=== PATIENT | female | born 1975 | race Caucasian/White ===

== ENCOUNTER 2020-05-30 08:24 | Day surgery (SDC) | payer MEDICARE ==
[~2020-05-30 08:24] MED LIST: CEFAZOLIN 2 GM-D5W BAG** 2 GM/50 ML ML IV ONE; Lactated Ringers 0 ML IV ONE; Lactated Ringers 1,000 ML IV ONE; Lactated Ringers 1,000 ML IV SCH; Sensorcaine 0.25% 10 ML ONE
== END 2020-05-30 09:12 | disposition home or self-care (01) ==
LOC: SDC 08:24 → MED SURG 08:24 → UNDOADMOB 08:24 → INTOOBSV 08:24 → EDSTATUS 09:03 → SDC 09:12 → UNDODISOB 09:12 → EDSTATUS 10:21
PROVIDERS: ATTEND Obstetrics & Gynecology
DX: Z53.09 Procedure and treatment not carried out because of other contraindication (principal)
CPT/HCPCS: J0690

== ENCOUNTER 2020-12-11 15:56 | Inpatient (IN) | payer MEDICARE ==
[2020-12-12] MEDS ORDERED: CEFAZOLIN 2 GM-D5W BAG** 2 GM/50 ML ML IV SCH (06:30)
[2020-12-12] MEDS: Lactated Ringers 1,000 ML IV SCH ×2 (06:48→16:00)
[2020-12-12] MEDS ORDERED: Sensorcaine 0.25% 10 ML ONE (07:58)
[2020-12-12] MEDS ORDERED: Lactated Ringers 1,000 ML IV ONE (07:59)
[2020-12-12] MEDS ORDERED: TORAdol 30 mg Injection ONE (08:01)
[2020-12-12] MEDS ORDERED: SUBLIMAZE 100 MCG/2 ML ONE ×2 (08:01→09:38)
[2020-12-12] MEDS ORDERED: Zofran 4 MG/2 ML VIAL ONE (08:01)
[2020-12-12] MEDS ORDERED: Xylocaine-Mpf 2% 5 Ml Vial ONE (08:01)
[2020-12-12] MEDS ORDERED: Versed 2 MG/2 ML Injection ONE (08:01)
[2020-12-12] MEDS ORDERED: BRIDION 200MG/2ML IV ONE (08:01)
[2020-12-12] MEDS ORDERED: DIPRIVAN 200 MG/20 ML IV ONE (08:01)
[2020-12-12] MEDS ORDERED: Zemuron 100 MG/10 ML ONE ×2 (08:01→09:52)
[2020-12-12] MEDS ORDERED: Decadron 4 MG INJ ONE (08:01)
[2020-12-12] MEDS ORDERED: Astramorph-Pf 5 MG/10 ML ONE (08:08)
[2020-12-12] MEDS ORDERED: TRANDATE 20 MG/4 ML SYRINGE IV ONE (10:05)
[2020-12-12] MEDS ORDERED: Morphine PCA 1 MG/ML 30 ML IV PRN (11:33)
[2020-12-12] MEDS ORDERED: Zofran 4 MG/2 ML VIAL IV PRN (11:42)
[2020-12-12] MEDS ORDERED: TORAdol 30 mg Injection IV PRN (11:44)
[2020-12-12] MEDS: Reglan 10 MG/2 ML IV SCH ×2 (16:00→21:07)
[2020-12-12] MEDS: Mylicon 80MG PO SCH ×2 (18:05→21:07)
[2020-12-12 18:14] LABS: Absolute Neutrophil Ct (ANC) 7.77 (1.4-6.9); BASOPHIL % 0.2 % (0.0-0.4); Basophil (Absolute #) 0.02 (0-0.4); Eosinophil (Absolute #) 0 (0-0.5); Hematocrit 32.7 % (35-47); Hemoglobin 9.6 gm/dl (12.0-16.0); Lymphocyte (Absolute #) 0.85 (1.0-4.6); Lymphocytes % 9.6 % (24.0-44.0); Mean Cell Volume 75.9 fl (78-100); Mean Corpuscular Hemoglobin 22.3 pg (26-32); Mean Corpuscular Hgb Concent. 29.4 g/dl (32-36); Mean Platelet Volume 10.3 fl (7.5-11.0); Monocyte (Absolute #) 0.24 (0.0-1.3); Monocytes % 2.7 % (0.0-12.0); Neutrophil % 87.5 % (36.0-66.0); Platelet Count 224 K/mm3 (150-450); Red Blood Count 4.31 M/mm3 (4.1-5.4); Red Cell Distribution Width 16.4 % (11.5-14.0); White Blood Count 8.9 K/mm3 (4.0-10.5)
[2020-12-12 19:30] LABS: Appearance CLEAR (CLEAR); Bilirubin NEGATIVE (NEGATIVE); Blood NEGATIVE Ery/ul (0-5); Glucose NEGATIVE (NEGATIVE); Ketones NEGATIVE (NEGATIVE); Leukocyte Esterase NEGATIVE (NEGATIVE); Nitrite NEGATIVE (NEGATIVE); Protein,Urine Dip NEGATIVE (Negative); Specific Gravity 1.011 (1.005-1.025); Urobilinogen NEGATIVE mg/dL (0-1)
[2020-12-12] MEDS: CEFAZOLIN 2 GM-D5W BAG** 2 GM/50 ML ML IV SCH (19:37)
[2020-12-12 20:19] LABS: Bacteria NONE SEEN /HPF (NEGATIVE)
[2020-12-12] MEDS: Colace 100 MG PO SCH (21:07)
[2020-12-13] MEDS: Lactated Ringers 1,000 ML IV SCH (00:34)
[2020-12-13] MEDS: CEFAZOLIN 2 GM-D5W BAG** 2 GM/50 ML ML IV SCH (02:13)
[2020-12-13 05:26] LABS: Absolute Neutrophil Ct (ANC) 5.57 (1.4-6.9); BASOPHIL % 0.1 % (0.0-0.4); Basophil (Absolute #) 0.01 (0-0.4); Eosinophil % 0.1 % (0.00-5.0); Eosinophil (Absolute #) 0.01 (0-0.5); Hematocrit 30.3 % (35-47); Hemoglobin 8.8 gm/dl (12.0-16.0); Lymphocyte (Absolute #) 2.21 (1.0-4.6); Lymphocytes % 25.6 % (24.0-44.0); Mean Cell Volume 75.8 fl (78-100); Mean Platelet Volume 10.6 fl (7.5-11.0); Monocyte (Absolute #) 0.82 (0.0-1.3); Monocytes % 9.5 % (0.0-12.0); Neutrophil % 64.7 % (36.0-66.0); Platelet Count 214 K/mm3 (150-450); Red Cell Distribution Width 16.3 % (11.5-14.0); White Blood Count 8.6 K/mm3 (4.0-10.5)
[2020-12-13 06:01] LABS: ALBUMIN 3.2 g/dL (3.5-5.0); ALKALINE PHOSPHATASE 48 U/L (38-126); ANION GAP 11.5 MEQ/L (5-15); BLOOD UREA NITROGEN 12 mg/dL (7-17); CHLORIDE 106 mmol/L (98-107); Calcium 8.4 mg/dL (8.4-10.2); Carbon Dioxide 24 mmol/L (22-30); Creatinine 1 0.68 mg/dL (0.52-1.04); EST GLOMERULAR FILTRATION RATE > 60.0 ML/MIN; Glucose 98 mg/dL (74-106); Potassium 3.8 mmol/L (3.5-5.1); SGOT/AST 25 U/L (14-36); SGPT/ALT 13 U/L (0-35); SODIUM 138 mmol/L (137-145); Total Protein 6.1 g/dL (6.3-8.2)
[2020-12-13] MEDS: Reglan 10 MG/2 ML IV SCH (06:39)
[2020-12-13] MEDS: Mylicon 80MG PO SCH (06:39)
[2020-12-13] MEDS ORDERED: ENOXAPARIN SODIUM SQ SCH (08:00)
--- NOTE | 2020-12-13 08:00 | PCM.NOTE ---
Date and Time: 12/13/20 0758 Subjective Assessment: pod 1 pt resting in bed and doing well. vss afebrile abd; soft incision c/d/intact ext; no clubbing cyanosis or edema cr; .68 hgb; 8.8 a/p sp laparoscopic supracervical hysterectomy left ophorectomy, b/l salpingectomy dc home today fu office 1 wk Objective Exam Wound Assessment: Skin/Wound Assessment Wound/Incision Assessment Start: 12/12/20 09:39 Text: Status: Active Freq: Q4H Protocol: Document 12/13/20 04:00 MG (Rec: 12/13/20 05:31 MG [id number]) Wound/Incision Assessment Lower Anterior Abdomen Wound Assessment Shift Assessment Wound Type Incision Wound Stage Non Pressure Wound Dressing Status Dry & Intact Drainage Amount Minimal Drainage Description Sanguineous Comment No change noted. OBJECTIVE DATA Vital Signs: Vital Signs - 24 hr Temp Pulse Resp BP Pulse Ox 12/13/20 07:35 97.8 F 81 16 98/55 97 12/13/20 04:37 96 12/13/20 04:00 98.4 F 77 18 123/60 96 12/13/20 00:41 97.8 F 66 16 102/58 96 12/13/20 00:37 96 12/12/20 20:37 97 12/12/20 19:30 99.6 F 77 16 106/54 97 12/12/20 16:01 97.8 F 62 16 113/58 97 12/12/20 16:00 16 12/12/20 13:39 97.8 F 70 16 125/60 97 12/12/20 13:25 97.8 F 70 16 125/60 97 12/12/20 13:00 97.6 F 71 18 125/67 100 12/12/20 12:37 100 12/12/20 12:15 97.5 F 74 18 123/74 99 12/12/20 12:00 97.7 F 70 14 110/62 99 Pain Assessment - Last Documented Pain Intensity 7 Intake and Output: Intake & Output 12/10/20 12/11/20 12/12/20 12/13/20 11:59 11:59 11:59 11:59 Intake Total 2679 Output Total 1450 Balance 1229 Weight 88 kg 88 kg Lab Results: Lab Results-Last 24 Hours 12/12/20 12/12/20 12/13/20 Range/Units 08:32 18:04 04:55 WBC 8.9 8.6 (4.0-10.5) K/mm3 RBC 4.31 4.00 L (4.1-5.4) M/mm3 Hgb 9.6 L 8.8 L (12.0-16.0) gm/dl Hct 32.7 L 30.3 L (35-47) % MCV 75.9 L 75.8 L (78-100) fl MCH 22.3 L 22.0 L (26-32) pg MCHC 29.4 L 29.0 L (32-36) g/dl RDW 16.4 H 16.3 H (11.5-14.0) % Plt Count 224 214 (150-450) K/mm3 MPV 10.3 10.6 (7.5-11.0) fl Gran % 87.5 H 64.7 (36.0-66.0) % Eos # (Auto) 0 0.01 (0-0.5) Absolute Lymphs (auto) 0.85 L 2.21 (1.0-4.6) Absolute Monos (auto) 0.24 0.82 (0.0-1.3) Lymphocytes % 9.6 L 25.6 (24.0-44.0) % Monocytes % 2.7 9.5 (0.0-12.0) % Eosinophils % 0.0 0.1 (0.00-5.0) % Basophils % 0.2 0.1 (0.0-0.4) % Absolute Granulocytes 7.77 H 5.57 (1.4-6.9) Basophils # 0.02 0.01 (0-0.4) Sodium (137-145) mmol/L Potassium (3.5-5.1) mmol/L Chloride (98-107) mmol/L Carbon Dioxide (22-30) mmol/L Anion Gap (5-15) MEQ/L BUN (7-17) mg/dL Creatinine (0.52-1.04) mg/dL Estimated GFR ML/MIN Glucose (74-106) mg/dL Calcium (8.4-10.2) mg/dL Total Bilirubin (0.2-1.3) mg/dL AST (14-36) U/L ALT (0-35) U/L Alkaline Phosphatase (38-126) U/L Serum Total Protein (6.3-8.2) g/dL Albumin (3.5-5.0) g/dL Urine Color YELLOW (YELLOW) Urine Appearance CLEAR (CLEAR) Urine pH 6.0 (5-6) Ur Specific Lena 1.011 (1.005-1.025) Urine Protein NEGATIVE (Negative) Urine Ketones NEGATIVE (NEGATIVE) Urine Blood NEGATIVE (0-5) Anjum/ul Urine Nitrite NEGATIVE (NEGATIVE) Urine Bilirubin NEGATIVE (NEGATIVE) Urine Urobilinogen NEGATIVE (0-1) mg/dL Ur Leukocyte Esterase NEGATIVE (NEGATIVE) Urine WBC (Auto) NONE (0-5) /HPF Urine RBC (Auto) NONE (0-2) /HPF U Epithel Cells (Auto) NONE (FEW) /HPF Urine Bacteria (Auto) NONE SEEN (NEGATIVE) /HPF Urine Glucose NEGATIVE (NEGATIVE) mg/dL 12/13/20 Range/Units 04:55 WBC (4.0-10.5) K/mm3 RBC (4.1-5.4) M/mm3 Hgb (12.0-16.0) gm/dl Hct (35-47) % MCV (78-100) fl MCH (26-32) pg MCHC (32-36) g/dl RDW (11.5-14.0) % Plt Count (150-450) K/mm3 MPV (7.5-11.0) fl Gran % (36.0-66.0) % Eos # (Auto) (0-0.5) Absolute Lymphs (auto) (1.0-4.6) Absolute Monos (auto) (0.0-1.3) Lymphocytes % (24.0-44.0) % Monocytes % (0.0-12.0) % Eosinophils % (0.00-5.0) % Basophils % (0.0-0.4) % Absolute Granulocytes (1.4-6.9) Basophils # (0-0.4) Sodium 138 (137-145) mmol/L Potassium 3.8 (3.5-5.1) mmol/L Chloride 106 (98-107) mmol/L Carbon Dioxide 24 (22-30) mmol/L Anion Gap 11.5 (5-15) MEQ/L BUN 12 (7-17) mg/dL Creatinine 0.68 (0.52-1.04) mg/dL Estimated GFR > 60.0 ML/MIN Glucose 98 (74-106) mg/dL Calcium 8.4 (8.4-10.2) mg/dL Total Bilirubin 0.20 (0.2-1.3) mg/dL AST 25 (14-36) U/L ALT 13 (0-35) U/L Alkaline Phosphatase 48 (38-126) U/L Serum Total Protein 6.1 L (6.3-8.2) g/dL Albumin 3.2 L (3.5-5.0) g/dL Urine Color (YELLOW) Urine Appearance (CLEAR) Urine pH (5-6) Ur Specific Lena (1.005-1.025) Urine Protein (Negative) Urine Ketones (NEGATIVE) Urine Blood (0-5) Anjum/ul Urine Nitrite (NEGATIVE) Urine Bilirubin (NEGATIVE) Urine Urobilinogen (0-1) mg/dL Ur Leukocyte Esterase (NEGATIVE) Urine WBC (Auto) (0-5) /HPF Urine RBC (Auto) (0-2) /HPF U Epithel Cells (Auto) (FEW) /HPF Urine Bacteria (Auto) (NEGATIVE) /HPF Urine Glucose (NEGATIVE) mg/dL Assessment/Plan (1) S/P laparoscopic supracervical hysterectomy Current Visit: Yes Status: Acute Code(s): Z90.711 - ACQUIRED ABSENCE OF UTERUS WITH REMAINING CERVICAL STUMP (2) H/O bilateral salpingectomy Current Visit: Yes Status: Acute Code(s): Z90.79 - ACQUIRED ABSENCE OF OTHER GENITAL ORGAN(S) (3) S/P left oophorectomy Current Visit: Yes Status: Acute Code(s): Z90.721 - ACQUIRED ABSENCE OF OVARIES, UNILATERAL
--- NOTE | 2020-12-13 08:07 | PCM.DS ---
Discharge Summary Date of Admission: 12/12/20 06:31 Admitting Physician: ZARINA ZIMMERMAN DO Primary Care Provider: INES,LOLIS Allergies Allergies latex Allergy (Intermediate, Verified 12/12/20 06:56) Swelling pine oil *RETIRED-06/24/12 [pine oil] Allergy (Verified 12/12/20 06:56) pineapple [Pineapple] Allergy (Verified 12/12/20 06:56) sulfamethoxazole [From Bactrim] Allergy (Verified 12/12/20 06:56) trimethoprim [From Bactrim] Allergy (Verified 12/12/20 06:56) Hospital Summary - Hospital Course Hospital Course: pt admitted on december 12 for undergoing laparoscopic supracervical hysterectomy bilteral salpingectomy, left ophorectomy secondary to abnormal uterine bleeding, anemia, and left ovarian cyst. pt underwent procedure without complication. during postop period did well and now stable for discharge. stable hgb; at 8.8 with normal creatinine level. pt discharged on norco for pain management and was advised to fu in office in 1 wk. all questions answered to her satisfaction. - Vitals & Intake/Output Vital Signs: Vital Signs Temperature 97.8 F 12/13/20 07:35 Pulse Rate 81 12/13/20 07:35 Respiratory Rate 16 12/13/20 07:35 Blood Pressure 98/55 12/13/20 07:35 O2 Sat by Pulse Oximetry 97 12/13/20 07:35 Intake & Output: Intake & Output 12/10/20 12/11/20 12/12/20 12/13/20 11:59 11:59 11:59 11:59 Intake Total 2679 Output Total 1450 Balance 1229 Weight 88 kg 88 kg - Lab Result Diagrams: 12/13/20 04:55 12/13/20 04:55 Lab Results-Last 24 Hrs: Lab Results-Last 24 Hours 12/12/20 12/12/20 12/13/20 Range/Units 08:32 18:04 04:55 WBC 8.9 8.6 (4.0-10.5) K/mm3 RBC 4.31 4.00 L (4.1-5.4) M/mm3 Hgb 9.6 L 8.8 L (12.0-16.0) gm/dl Hct 32.7 L 30.3 L (35-47) % MCV 75.9 L 75.8 L (78-100) fl MCH 22.3 L 22.0 L (26-32) pg MCHC 29.4 L 29.0 L (32-36) g/dl RDW 16.4 H 16.3 H (11.5-14.0) % Plt Count 224 214 (150-450) K/mm3 MPV 10.3 10.6 (7.5-11.0) fl Gran % 87.5 H 64.7 (36.0-66.0) % Eos # (Auto) 0 0.01 (0-0.5) Absolute Lymphs (auto) 0.85 L 2.21 (1.0-4.6) Absolute Monos (auto) 0.24 0.82 (0.0-1.3) Lymphocytes % 9.6 L 25.6 (24.0-44.0) % Monocytes % 2.7 9.5 (0.0-12.0) % Eosinophils % 0.0 0.1 (0.00-5.0) % Basophils % 0.2 0.1 (0.0-0.4) % Absolute Granulocytes 7.77 H 5.57 (1.4-6.9) Basophils # 0.02 0.01 (0-0.4) Sodium (137-145) mmol/L Potassium (3.5-5.1) mmol/L Chloride (98-107) mmol/L Carbon Dioxide (22-30) mmol/L Anion Gap (5-15) MEQ/L BUN (7-17) mg/dL Creatinine (0.52-1.04) mg/dL Estimated GFR ML/MIN Glucose (74-106) mg/dL Calcium (8.4-10.2) mg/dL Total Bilirubin (0.2-1.3) mg/dL AST (14-36) U/L ALT (0-35) U/L Alkaline Phosphatase (38-126) U/L Serum Total Protein (6.3-8.2) g/dL Albumin (3.5-5.0) g/dL Urine Color YELLOW (YELLOW) Urine Appearance CLEAR (CLEAR) Urine pH 6.0 (5-6) Ur Specific Counselor 1.011 (1.005-1.025) Urine Protein NEGATIVE (Negative) Urine Ketones NEGATIVE (NEGATIVE) Urine Blood NEGATIVE (0-5) Anjum/ul Urine Nitrite NEGATIVE (NEGATIVE) Urine Bilirubin NEGATIVE (NEGATIVE) Urine Urobilinogen NEGATIVE (0-1) mg/dL Ur Leukocyte Esterase NEGATIVE (NEGATIVE) Urine WBC (Auto) NONE (0-5) /HPF Urine RBC (Auto) NONE (0-2) /HPF U Epithel Cells (Auto) NONE (FEW) /HPF Urine Bacteria (Auto) NONE SEEN (NEGATIVE) /HPF Urine Glucose NEGATIVE (NEGATIVE) mg/dL 12/13/20 Range/Units 04:55 WBC (4.0-10.5) K/mm3 RBC (4.1-5.4) M/mm3 Hgb (12.0-16.0) gm/dl Hct (35-47) % MCV (78-100) fl MCH (26-32) pg MCHC (32-36) g/dl RDW (11.5-14.0) % Plt Count (150-450) K/mm3 MPV (7.5-11.0) fl Gran % (36.0-66.0) % Eos # (Auto) (0-0.5) Absolute Lymphs (auto) (1.0-4.6) Absolute Monos (auto) (0.0-1.3) Lymphocytes % (24.0-44.0) % Monocytes % (0.0-12.0) % Eosinophils % (0.00-5.0) % Basophils % (0.0-0.4) % Absolute Granulocytes (1.4-6.9) Basophils # (0-0.4) Sodium 138 (137-145) mmol/L Potassium 3.8 (3.5-5.1) mmol/L Chloride 106 (98-107) mmol/L Carbon Dioxide 24 (22-30) mmol/L Anion Gap 11.5 (5-15) MEQ/L BUN 12 (7-17) mg/dL Creatinine 0.68 (0.52-1.04) mg/dL Estimated GFR > 60.0 ML/MIN Glucose 98 (74-106) mg/dL Calcium 8.4 (8.4-10.2) mg/dL Total Bilirubin 0.20 (0.2-1.3) mg/dL AST 25 (14-36) U/L ALT 13 (0-35) U/L Alkaline Phosphatase 48 (38-126) U/L Serum Total Protein 6.1 L (6.3-8.2) g/dL Albumin 3.2 L (3.5-5.0) g/dL Urine Color (YELLOW) Urine Appearance (CLEAR) Urine pH (5-6) Ur Specific Counselor (1.005-1.025) Urine Protein (Negative) Urine Ketones (NEGATIVE) Urine Blood (0-5) Anjum/ul Urine Nitrite (NEGATIVE) Urine Bilirubin (NEGATIVE) Urine Urobilinogen (0-1) mg/dL Ur Leukocyte Esterase (NEGATIVE) Urine WBC (Auto) (0-5) /HPF Urine RBC (Auto) (0-2) /HPF U Epithel Cells (Auto) (FEW) /HPF Urine Bacteria (Auto) (NEGATIVE) /HPF Urine Glucose (NEGATIVE) mg/dL - Procedures and Test Procedures and Tests throughout Hospitalization: Therapy Orders & Screens 12/12/20 12:04 Incentive Spirometry UD Comment: Diagnosis: abnormal uterine bleeding 12/12/20 14:07 Smoking Cessation Education ONCE Comment: Diagnosis: S/P HYSTERECTOMY Smoking Status: Current every day smoker How long have you smoked: YRS Have you smoked in the past 12 months: No Approximately how many cigarettes per day: 10-15 Do you dip or chew tobacco: No Discharge Exam Wound Assessment: Skin/Wound Assessment Wound/Incision Assessment Start: 12/12/20 09:39 Text: Status: Active Freq: Q4H Protocol: Document 12/13/20 04:00 MG (Rec: 12/13/20 05:31 MG [id number]) Wound/Incision Assessment Lower Anterior Abdomen Wound Assessment Shift Assessment Wound Type Incision Wound Stage Non Pressure Wound Dressing Status Dry & Intact Drainage Amount Minimal Drainage Description Sanguineous Comment No change noted. Final Diagnosis/Problem List - Final Discharge Diagnosis/Problem (1) S/P laparoscopic supracervical hysterectomy Current Visit: Yes Status: Acute Code(s): Z90.711 - ACQUIRED ABSENCE OF UTERUS WITH REMAINING CERVICAL STUMP (2) H/O bilateral salpingectomy Current Visit: Yes Status: Acute Code(s): Z90.79 - ACQUIRED ABSENCE OF OTHER GENITAL ORGAN(S) (3) S/P left oophorectomy Current Visit: Yes Status: Acute Code(s): Z90.721 - ACQUIRED ABSENCE OF OVARIES, UNILATERAL - Discharge Disposition: Home, Self-Care Condition: Stable Prescriptions: New Hydrocodone/Acetaminophen [Hydrocodone-Acetamin 5-325 mg] 1 tab PO Q6HPRN PRN #30 tablet MDD 4 PRN Reason: Pain Follow up with: LOLIS CHACON MD [Primary Care Provider] - ZARINA ZIMMERMAN DO [ACTIVE STAFF] - 1 Week (no heavy lifting nothing per vagina )
[2020-12-13] MEDS ORDERED: NORCO 5/325 MG PO PRN (08:57)
[2020-12-13] MEDS: Colace 100 MG PO SCH (09:30)
[2020-12-13 11:38] VITALS: BP 92/46; PULSE 69; O2SAT 98
--- NOTE | 2020-12-13 13:06 | OP ---
SURGERY DATE/TIME: 12/12/2020822 PREOPERATIVE DIAGNOSIS: Abnormal uterine bleeding and anemia. POSTOPERATIVE DIAGNOSES: 1) Abnormal uterine bleeding and anemia with left ovarian cyst. 2) Bilateral dilated tube. PROCEDURES: 1) Laparoscopic supracervical hysterectomy. 2) Bilateral salpingectomy. 3) Left oophorectomy. SURGEON: Gordon Jackson D.O. BONDACTOR MACHINE OPERATOR: Kwasi Ríos surgical manager. ANESTHESIA: General. ESTIMATED BLOOD LOSS: 400 cc. COMPLICATIONS: None. INDICATIONS: The risks, benefits, indications and alternatives of the procedure were reviewed with the patient prior to procedure. The patient understood the risk of infection, bleeding, bowel injury, bladder injury, ureteral injury, uterine perforation, pelvic infection and thromboembolic disorder that may be associated with this surgery and desires to have this surgery as a possible means to alleviate her current medical condition. DESCRIPTION OF PROCEDURE AND FINDINGS: At this point the patient is taken to the operating room, given general sedation, placed in supine position where she was prepared and draped in the usual sterile fashion. A 5 mm skin incision is made in the umbilical fold and a 5 mm trocar and sleeve were advanced under direct visualization where pneumoperitoneum was obtained with 4 liters of CO2 gas. An additional incision was made in the left lower quadrant region where a 5 mm trocar and sleeve were advanced under direct visualization. Additional trocar in the right lower quadrant region where a 5 mm trocar and sleeve were advanced under direct visualization as well. An additional incision was made 2 cm above the symphysis pubis where a 10 mm incision was made and a 10 mm trocar and sleeve were advanced under direct visualization. From this point visualization of the pelvic region did show bilateral dilated tubes and left ovarian cyst which was approximately 3.3 cm in dimension which appeared hemorrhagic. From this point the uterus was grasped and lifted up and the LigaSure was used and placed on the left uteropelvic ligament where it was clamped, coagulated and cut and taken down to the round ligament and towards the uterine vasculature on its side. The ovary on the left side was removed on the left side secondary to the ovarian cyst which appeared suspicious. On the right the uterus was pushed over to the left side and the right utero-ovarian ligament was clamped, coagulated and cut taken down to the round ligament towards the uterine vasculature on its side. From this point the bipolar instrument was used and the uterine vesicles were coagulated in three contiguous regions and a bladder flap developed on its side. On the left side the uterine vesicles were coagulated, cut and a bladder flap developed on its side. Hemostasis was obtained. From this point the fallopian tube on the right was lifted and was clamped, coagulated and cut without complications. Hemostasis was obtained. The same was performed on the left side. From this point the uterus was lifted and a Lasso SupraLoop was placed over the junction of the cervix and the uterus where the cutting was taken place and the uterus was amputated from its cervical stump region and was done so without complication. Hemostasis was obtained. At this point the incision in the abdomen, the 10 mm incision on the cervical region was extended on the fascial side to approximately 2.5 cm and Tc retractor was placed in through the incision where the uterus was removed and cut extracorporeally using the #11 blade in a C-incision format coring it out and was removed in its entirety without spillage and was done so without complication. The adnexa removed as well without complication and no spillage. From this point hemostasis was obtained. Irrigation taken place. The incision on the 10 mm was closed with 0 Vicryl suture and the skin was closed with absorbable janet called INSORB. After taking a second look intra-abdominally, everything appeared to be within normal limits. There was no bleeding that was noted. All instruments were removed from the patient's abdominal region. The remaining incisions were closed with 4-0 Monocryl suture. The patient was then taken out of anesthesia and was then taken to the recovery room in stable condition. All instruments, laps were accounted for x2.
== END 2020-12-13 13:20 | disposition home or self-care (01) | DRG 743 ==
LOC: SDC 12-12 06:31 → MED SURG 12-12 06:31 → EDSTATUS 12-12 07:31
PROVIDERS: ADMIT Obstetrics & Gynecology; ATTEND Obstetrics & Gynecology
PROC: 0UT94ZL Resection of Uterus, Supracervical, Percutaneous Endoscopic Approach (ICD-10-PCS; principal; 2020-12-12)
PROC: 0UT14ZZ Resection of Left Ovary, Percutaneous Endoscopic Approach (ICD-10-PCS; 2020-12-12)
PROC: 0UT74ZZ Resection of Bilateral Fallopian Tubes, Percutaneous Endoscopic Approach (ICD-10-PCS; 2020-12-12)
DX: N93.9 Abnormal uterine and vaginal bleeding, unspecified (principal); D64.9 Anemia, unspecified; N83.202 Unspecified ovarian cyst, left side; Z20.822 Contact with and (suspected) exposure to COVID-19
CPT/HCPCS: 36415; 58542; 80053; 81001; 81025; 85025; 85027; 86850; 86900; 86901; 87086; 94760; U0003; 88305; J0690; J1100; J1650; J1885; J2250; J2270; J2274; J2405; J2704; J3010; A9270-GY